=== PATIENT | female | born 1935 | race Caucasian/White ===

== ENCOUNTER → 2017-06-30 | Outpatient (CLI) | payer MEDICARE ==
[~2017-06-30] MED LIST: AMLO5TAB2 PO; ATOR20TA9 PO; CALC500T93 PO; CARV10CP PO; CHLO25TA PO; DULO60CA7 PO; ENAL20TA PO; FURO-93 PO; FURO20TA3 PO; HYDR-882 PO; METH750T2 PO; POTA10CA PO; RIVA20TA PO; TRAM50TA2 PO; TRAZ50TA18 PO; [UNRECOGNIZED DRUG - OTHER] PO
== END ==
LOC: CVU 13:31 → EDSTATUS 14:00
PROVIDERS: ATTEND Nurse Practitioner Family
DX: I08.3 Combined rheumatic disorders of mitral, aortic and tricuspid valves (principal)
CPT/HCPCS: 93306

== ENCOUNTER 2017-12-11 13:48 | Emergency (ER) | payer MEDICARE ==
[~2017-12-11] VITALS: Ht 160 cm; Wt 135.0 kg
[2017-12-11 16:09] LABS: BASOPHILS # (AUTO) 0.04 x10^3/uL (0-0.1); BASOPHILS % (AUTO) 1 % (0-1); EOSINOPHILS # (AUTO) 0.18 x10^3/uL (0-0.4); EOSINOPHILS % (AUTO) 3 % (1-7); LYMPHOCYTES # (AUTO) 1.61 x10^3/uL (1-3.4); LYMPHOCYTES % (AUTO) 23 % (22-44); MD NO; MEAN CORPUSCULAR HEMOGLOBIN 29.3 pg (27.0-34.8); MEAN CORPUSCULAR HGB CONC 32.5 g/dL (32.4-35.8); MEAN PLATELET VOLUME 8.5 fL (7.4-10.4); MONOCYTES # (AUTO) 0.54 x10^3/uL (0.2-0.8); MONOCYTES % (AUTO) 8 % (2-9); NEUTROPHILS # (AUTO) 4.75 x10^3/uL (1.8-6.8); NEUTROPHILS % (AUTO) 67 % (42-75); PLATELET COUNT 300 x10^3/uL (130-400); RED CELL DISTRIBUTION WIDTH 14.6 % (9.6-15.2)
[2017-12-11 16:16] LABS: INTERNATIONAL NORMALIZED RATIO 1.09 (0.93-1.1); PROTHROMBIN TIME 11.2 Seconds (9.6-11.5)
[2017-12-11 16:19] LABS: ALBUMIN 3.4 g/dL (3.4-5.0); ANION GAP 6 mmol/L (5-15); CALCIUM 8.4 mg/dL (8.5-10.1); CHLORIDE 102 mmol/L (98-107)
[2017-12-11 16:25] LABS: ALANINE AMINOTRANSFERASE 21 U/L (12-78); ALKALINE PHOSPHATASE 161 U/L (45-117); BILIRUBIN,TOTAL 0.9 mg/dL (0.2-1.0); CREATININE 0.86 mg/dL (0.55-1.02); TOTAL PROTEIN 6.7 g/dL (6.4-8.2)
[2017-12-11] MEDS ORDERED: CEFAZOLIN 1,000 MG IM ONE (16:30)
[2017-12-11] MEDS ORDERED: CEFAZOLIN 1,000 MG ONE (16:34)
[2017-12-11 16:40] VITALS: BP 162/78
== END 2017-12-11 17:27 | disposition home or self-care (01) ==
LOC: ED 17:01
DX: L03.116 Cellulitis of left lower limb (principal); R60.0 Localized edema; J44.9 Chronic obstructive pulmonary disease, unspecified; M19.90 Unspecified osteoarthritis, unspecified site; I11.0 Hypertensive heart disease with heart failure; I50.9 Heart failure, unspecified; E78.5 Hyperlipidemia, unspecified; I48.91 Unspecified atrial fibrillation; Z87.891 Personal history of nicotine dependence; Z88.1 Allergy status to other antibiotic agents; Z88.6 Allergy status to analgesic agent; Z88.0 Allergy status to penicillin
CPT/HCPCS: 36415; 71045; 80053; 83880; 85025; 85610; 85730; 93005; 93971; 99285; J0690

== ENCOUNTER 2019-06-17 14:24 | Emergency (ER) | payer MEDICARE ==
[~2019-06-17] VITALS: Ht 162.6 cm; Wt 130.0 kg
[~2019-06-17 14:24] MED LIST changes: +ALPR0.254 PO; +AMLO-150 PO; -AMLO5TAB2 PO; +ATOR20TA37 PO; -ATOR20TA9 PO; +HYDR-3653 PO; -HYDR-882 PO; +LOSA100T14 PO; +PARO30TA3 PO; +SPIROLACTONE; -TRAZ50TA18 PO; +TRAZ50TA66 PO
[2019-06-17] MEDS ORDERED: CEFTRIAXONE PMX 1GM/50ML 50 ML IVPB ONE (14:30)
[2019-06-17] MEDS ORDERED: SODIUM CHLORIDE 0.9% 1,000ML IVBOLUS ONE (14:30)
[2019-06-17] MEDS ORDERED: SODIUM CHLORIDE FLUSH 10ML SYR IVF ONE (14:30)
[2019-06-17 14:43] LABS: MICROSCOPIC NOT IND
[2019-06-17 15:02] LABS: BASOPHILS # (AUTO) 0.09 x10^3/uL (0-0.1); BASOPHILS % (AUTO) 1 % (0-1); EOSINOPHILS # (AUTO) 0.23 x10^3/uL (0-0.4); EOSINOPHILS % (AUTO) 3 % (1-7); LYMPHOCYTES # (AUTO) 1.53 x10^3/uL (1-3.4); LYMPHOCYTES % (AUTO) 23 % (22-44); MD NO; MEAN CORPUSCULAR HEMOGLOBIN 29.6 pg (27.0-34.8); MEAN CORPUSCULAR HGB CONC 31.9 g/dL (32.4-35.8); MEAN CORPUSCULAR VOLUME 92.6 fL (80-100); MEAN PLATELET VOLUME 8.4 fL (7.4-10.4); MONOCYTES # (AUTO) 0.42 x10^3/uL (0.2-0.8); MONOCYTES % (AUTO) 6 % (2-9); NEUTROPHILS # (AUTO) 4.48 x10^3/uL (1.8-6.8); NEUTROPHILS % (AUTO) 66 % (42-75); PLATELET COUNT 264 x10^3/uL (130-400); RED BLOOD COUNT 3.89 x10^6/uL (3.82-5.3); RED CELL DISTRIBUTION WIDTH 14.5 % (9.6-15.2)
--- NOTE | 2019-06-17 15:09 | NUR ---
PT BIB [facility] FOR UTI. PT HAS INCREASED URINATION. HAD UTIE 2 MONTHS AGO. DENIES FEVERS CHILLS OR BACK ACHE. PT DOES NOT AMBULATE WELL DUE TO ARTHRITIS. STRAIGHT CATH UA SAMPLE COLLECTED. PURE WHICK PLACED. VS STABLE. BASELINE 3 L O2. A&OX4, PT NOT IN ANY DISTRESS.
[2019-06-17 15:11] LABS: ALBUMIN 2.8 g/dL (3.4-5.0); ANION GAP 3 mmol/L (5-15); CALCIUM 8.8 mg/dL (8.5-10.1); CHLORIDE 106 mmol/L (98-107); CREATININE 0.72 mg/dL (0.55-1.02)
[2019-06-17] MEDS ORDERED: CEFTRIAXONE PMX 1GM/50ML 50 ML ONE (15:15)
[2019-06-17 15:18] VITALS: BP 140/64
--- NOTE | 2019-06-17 15:18 | NUR ---
BLOOD CULTURES DRAWN PRIOR ABX ADMIN.
--- NOTE | 2019-06-17 16:27 | NUR ---
DISCUSSED POC W PT, WILL DC SOON. DAUGHTER WILL BE ABLE TO AUDITING CONTROL CLERK . VS STABLE.
--- NOTE | 2019-06-17 17:38 | NUR ---
MAX STAFF ASSIST TO WHEELCHAIR. GIVEN BRIEFS. DAUGHTER WILL FIRMWARE ENGINEER W OXYGEN. PT GIVEN DC INSTRUCTIONS. UNDERSTANDS INSTRUCTIONS, WHEELED TO DC AREA
== END 2019-06-17 17:40 | disposition home or self-care (01) ==
LOC: ED 15:15
DX: R35.0 Frequency of micturition (principal); I11.0 Hypertensive heart disease with heart failure; I50.9 Heart failure, unspecified; J44.9 Chronic obstructive pulmonary disease, unspecified; I48.91 Unspecified atrial fibrillation; E78.5 Hyperlipidemia, unspecified; G47.30 Sleep apnea, unspecified; Z90.710 Acquired absence of both cervix and uterus
CPT/HCPCS: 36415; 80048; 81003; 82040; 83605; 85025; 87040; 93005; 96365; 99284; J0696; J7030

== ENCOUNTER 2019-08-09 15:17 | Emergency (ER) | payer MEDICARE ==
[~2019-08-09] VITALS: Ht 152.4 cm; Wt 134.5 kg
[2019-08-09] MEDS ORDERED: LIDOCAINE 1%-EPI 1:100K, 20ML ONE ×2 (15:25→16:27)
[2019-08-09] MEDS ORDERED: CEFAZOLIN PMX 1GM/50ML 50 ML ONE (15:29)
[2019-08-09] MEDS ORDERED: DIPH,PERTUSS(ACELL),TET VAC/PF 0.5 ML IM-VACC ONE ×2 (15:40→16:00)
--- NOTE | 2019-08-09 15:57 | NUR ---
PT UPRIGHT ON GURNEY AWAKE & COMFORTABLE AT REST, ANXIOUS ABOUT ANTICIPATED WOUND CARE BUT NAD, RESPONDS APPROP TO STAFF, COMFORT MEASURES PROVIDED, CALL LIGHT WITHIN REACH.
[2019-08-09] MEDS ORDERED: CEFAZOLIN PMX 1GM/50ML 50 ML IV ONE (16:00)
[2019-08-09] MEDS ORDERED: LIDOCAINE 1%-EPI 1:100K, 20ML SQ ONE (16:00)
[2019-08-09] MEDS ORDERED: SODIUM CHLORIDE FLUSH 10ML SYR IVF ONE (16:30)
[2019-08-09] MEDS ORDERED: NEOSPORIN OINT. PKT 1 PACKET ONE ×2 (16:38→18:08)
[2019-08-09 17:03] VITALS: BP 152/70
--- NOTE | 2019-08-09 17:03 | NUR ---
PT REMAINS UPRIGHT ON GURNEY AWAKE & MOSTLY COMFORTABLE DURING WOUND CARE WITH PA & TECH AT BS, RESPONDS APPROP TO STAFF, COMFORT MEASURES PROVIDED, CALL LIGHT WITHIN REACH.
--- NOTE | 2019-08-09 18:01 | NUR ---
PT UPRIGHT ON GURNEY AWAKE & TOLERATED WOUND CARE BY PA WELL, NAD, RESPONDS APPROP TO STAFF, COMFORT MEASURES PROVIDED, CALL LIGHT WITHIN REACH.
--- NOTE | 2019-08-09 18:57 | NUR ---
Patient given wound care/discharge instructions and they have confirmed that they understand the instructions. Patient to DC desk via WC.
== END 2019-08-09 18:58 | disposition home or self-care (01) ==
LOC: ED 18:00
DX: S81.811A Laceration without foreign body, right lower leg, initial encounter (principal); T14.8XXA Other injury of unspecified body region, initial encounter; I11.0 Hypertensive heart disease with heart failure; I50.9 Heart failure, unspecified; E78.5 Hyperlipidemia, unspecified; J44.9 Chronic obstructive pulmonary disease, unspecified; I48.91 Unspecified atrial fibrillation; Z87.891 Personal history of nicotine dependence; W01.0XXA Fall on same level from slipping, tripping and stumbling without subsequent striking against object, initial encounter; Y93.01 Activity, walking, marching and hiking; Y92.009 Unspecified place in unspecified non-institutional (private) residence as the place of occurrence of the external cause; Y99.8 Other external cause status
CPT/HCPCS: 12034; 73590; 90471; 90715; 96365; 99284; J0690; J3490

== ENCOUNTER 2019-09-05 12:52 | Emergency (ER) | payer MEDICARE ==
[~2019-09-05] VITALS: Ht 162.6 cm; Wt 137.0 kg
[~2019-09-05 12:52] MED LIST changes: +ACET325T26 PO; +CEFD300C37 PO
--- NOTE | 2019-09-05 13:21 | NUR ---
PA STUDENT IN ROOM FOR EVAL. PLAN FOR LABS. CALL MURPHY IN REACH.
--- NOTE | 2019-09-05 13:39 | NUR ---
PLAN FOR SW AND WOUND CONSULTS.
--- NOTE | 2019-09-05 14:03 | NUR ---
BREAK RN: PT UPTIGHT ON [facility] AWAKE & COMFORTABLE, AWAITING WOUND CONSULT, RESPONDS APPROP TO STAFF, NAD, DENIES PAIN AT THIS TIME, COMFORT MEASURES PROVIDED, CALL LIGHT WITHIN REACH.
--- NOTE | 2019-09-05 14:38 | NUR ---
BREAK RN: SINGH (ALAYNA) AT BS.
[2019-09-05 15:10] VITALS: BP 150/94
--- NOTE | 2019-09-05 15:15 | NUR ---
REPORT TO RAÚL NEGRO.
--- NOTE | 2019-09-05 16:16 | NUR ---
SCOOPING MACHINE TENDER STATES THAT PT CAN BE DC'D WITH HOME HEALTH FOLLOW UP THURSDAY. HOME HEALTH SET UP AT DC FROM ADMIT LAST THURSDAY. PT AWARE AND DEMONSTRATES UNDERSTANDING. [facility] TO TRANSPORT PT HOME.
--- NOTE | 2019-09-05 18:02 | NUR ---
DC EDUCATION PROVIDED, PT DEMONSTRATES UNDERSTANDING. PT TRANSFERED SELF WITH STAND BY ASSISTANCE TO WHEELCHAIR. PT TRANSFERED HOME BY [facility]
== END 2019-09-05 18:04 | disposition home or self-care (01) ==
LOC: ED 17:55
DX: L03.115 Cellulitis of right lower limb (principal); I11.0 Hypertensive heart disease with heart failure; J44.9 Chronic obstructive pulmonary disease, unspecified; E78.5 Hyperlipidemia, unspecified; I48.91 Unspecified atrial fibrillation; I50.9 Heart failure, unspecified; Z90.710 Acquired absence of both cervix and uterus
CPT/HCPCS: 99283

== ENCOUNTER 2020-06-11 14:12 | Emergency (ER) | payer MEDICARE ==
[~2020-06-11] VITALS: Ht 162.6 cm; Wt 125.0 kg
[~2020-06-11 14:12] MED LIST changes: -ENAL20TA PO; +ENAL20TA9 PO
--- NOTE | 2020-06-11 14:31 | NUR ---
TASK RN: ABHINAV FELDER FROM HOME W CO SINUS CONGESTION X TWO WEEKS. "I WEAR OXYGEN AT HOME AND I NOTICED TWO WEEKS AGO MY SINUS HURT AND I THINK ITS INFECTED". HX AFIB, ON XARELTO. OFF DIURETIC X "A WHILE" "THEY MADE ME PEE TOO MUCH". +2 P[place] EDEMA. DENIES PRODUCTIVE COUGH/EXERTIONAL DYSPNEA. SPO2 >90% ON BASELINE O2 NEEDS. DENIES FEVER/CHEST PAIN BP/SPO2/ECG MONITORING IN PLACE. AFIB ON MONITOR. Addendum: 06/11/20 at 1433 by LWEGENER PT REFUSING BP. "IT HURTS TOO MUCH". PT IN SEVERE EMOTIONAL DISTRESS WITH ATTEMPTS TO OBTAIN BP. BP BY EMERITA 163/84
--- NOTE | 2020-06-11 15:10 | NUR ---
TASK RN: PT SITTING UP IN GURNEY, AWAKE/ALERT. NAD NOTED. CONTINUES TO REFUSE BP MONITORING. POC IS DC. COVID SWAB COLLECTED AND WALKED TO LAB. TP TO CALL [facility] FOR TRANSPORT HOME.
--- NOTE | 2020-06-11 15:12 | NUR ---
TRANSPORT ARRANGED THROUGH [facility]. ETA 15:30
--- NOTE | 2020-06-11 15:47 | NUR ---
Patient given discharge instructions and Rx, they have confirmed that they understand the instructions. Patient left via WC accompanied by [facility].
== END 2020-06-11 16:34 | disposition home or self-care (01) ==
LOC: ED 16:28
DX: U07.1 COVID-19 (principal); J34.0 Abscess, furuncle and carbuncle of nose; Z88.0 Allergy status to penicillin; Z88.2 Allergy status to sulfonamides; Z88.5 Allergy status to narcotic agent
CPT/HCPCS: 87635; 99283

== ENCOUNTER 2020-06-18 12:59 | Emergency (ER) | payer MEDICARE ==
[~2020-06-18] VITALS: Ht 162.6 cm; Wt 127.0 kg
[2020-06-18 13:01] VITALS: BP 143/72
--- NOTE | 2020-06-18 13:09 | NUR ---
FLOORMAN. PT [id number] BROUGHT PT IN, PER PT AND [id number] SUSIE TO CALL PT'S SON JAMIE EDOUARD [phone] WITH ANY UPDATES AND FOR PT SUPERVISOR HYDROCHLORIC AREA IF DISCHARGED.
--- NOTE | 2020-06-18 13:28 | NUR ---
per pt she had a covid test over three weeks ago and "they never told me if i had it, so i went back today and they said it was positive" "i want to make sure i don't have it now." vss. pt anxious. denies any worsening COPD c/o, denies any COVID c/o.
--- NOTE | 2020-06-18 14:04 | NUR ---
BREAK RN: XRAY IN ROOM. VS STABLE. NO ACUTE DISTRESS NOTED. WILL CONTINUE TO MONITOR WHILE PRIMARY RN IS ON BREAK.
[2020-06-18 14:18] LABS: BASOPHILS % (AUTO) 0 % (0-1); EOSINOPHILS % (AUTO) 1 % (1-7); LYMPHOCYTES % (AUTO) 18 % (22-44); MEAN CORPUSCULAR HEMOGLOBIN 27.8 pg (27.0-34.8); MEAN CORPUSCULAR HGB CONC 32.4 g/dL (32.4-35.8); MEAN PLATELET VOLUME 8.4 fL (7.4-10.4); MONOCYTES % (AUTO) 9 % (2-9); NEUTROPHILS % (AUTO) 73 % (42-75); PLATELET COUNT 215 x10^3/uL (130-400); RED BLOOD COUNT 4.09 x10^6/uL (3.82-5.3)
[2020-06-18 14:19] LABS: MD NO
[2020-06-18 14:24] LABS: ALBUMIN 2.7 g/dL (3.4-5.0); ANION GAP 2 mmol/L (5-15); CHLORIDE 103 mmol/L (98-107); CREATININE 0.65 mg/dL (0.55-1.02)
[2020-06-18 14:28] LABS: TROPONIN I < 0.015 ng/mL (0.000-0.045)
--- NOTE | 2020-06-18 15:40 | NUR ---
updated pt on plan of care. appears in no acute distress. vss. pt watching tv
== END 2020-06-18 17:02 | disposition home or self-care (01) ==
LOC: ED 14:14
DX: U07.1 COVID-19 (principal); J44.9 Chronic obstructive pulmonary disease, unspecified; J32.0 Chronic maxillary sinusitis; B96.89 Other specified bacterial agents as the cause of diseases classified elsewhere; J32.9 Chronic sinusitis, unspecified; F17.210 Nicotine dependence, cigarettes, uncomplicated; I48.91 Unspecified atrial fibrillation
CPT/HCPCS: 36415; 71045; 80048; 82040; 83880; 84484; 85025; 93005; 99285; 99406